=== PATIENT | male | born 1965 | race African-American/Black ===

== ENCOUNTER 2018-07-17 11:57 | Observation (INO) ==
[2018-07-17] MEDS ORDERED: DEXTROSE 50% 25 GM/50 ML SYRINGE IV ONE (12:07)
[2018-07-17] MEDS ORDERED: DEXTROSE 50% 25 GM/50 ML VIAL IV STA (12:11)
[2018-07-17] MEDS ORDERED: SODIUM CHLORIDE 0.9% 1,000 ML IV STA (12:13)
[2018-07-17 12:49] LABS: Basophils % 0.5 % (0.0-0.8); Eosinophils # 0.1 10*3/uL (0.0-0.87); Eosinophils % 1.8 % (0.00-10.9); Hematocrit 36.8 VOL% (42.0-52.0); Hemoglobin 12.8 GM/DL (14.0-18.0); Immature Granulocytes % 0.5 %; Immature Granulocytes Absolute 0.03 #; Lymphocytes # 2.5 10*3/uL (1.4-4.0); Lymphocytes % 45.2 % (21.2-54.2); Mean Corpuscular HGB Conc 34.8 GM/DL (32-36); Mean Corpuscular Hemoglobin 28 PG (27-34); Mean Corpuscular Volume 79.5 FL (87-102); Mean Platelet Volume 10.6 FL (9.6-12.0); Monocytes # 0.6 10*3/uL (0.11-0.8); Neutrophils # 2.3 10*3/uL (1.4-7.4); Platelet Count 300 T/CUMM (130-400); Red Blood Count 4.63 MC/CUMM (3.8-5.5); Red Cell Distribution Width 13.7 % (9.3-17.3); White Blood Count 5.6 T/CUMM (4-12)
[2018-07-17 12:59] LABS: PT Patient Result 10.1 SECS
[2018-07-17 13:06] LABS: Alanine Aminotransferase 28 U/L (16-61); Albumin 3.4 G/DL (3.4-5.0); Alkaline Phosphatase 86 U/L (45-117); Aspartate Amino Transferase 24 U/L (0-37); Blood Urea Nitrogen 13 MG/DL (7-18); Calcium 8.8 MG/DL (8.5-10.1); Glucose 139 MG/DL (74-106); Osmolality,Calculated 278.5 MOS/KG (273-304); Potassium 3.6 MMOL/L (3.5-5.1); Sodium 139 MMOL/L (136-145); Total Protein 6.4 G/DL (6.4-8.3)
[2018-07-17 13:35] LABS: Partial Thromboplastin Time 24.2 SECS (0-40)
[2018-07-17] MEDS ORDERED: LABETALOL 20 MG/4 ML SYRINGE IV STA (13:45)
[2018-07-17] MEDS ORDERED: LABETALOL 200 MG/40 ML VIAL IV STA (13:54)
[2018-07-17] MEDS ORDERED: ACETAMINOPHEN 325 MG TABLET PO PRN (14:39)
[2018-07-17] MEDS ORDERED: GLUCAGON 1 MG VIAL IM PRN (14:39)
[2018-07-17] MEDS ORDERED: ONDANSETRON 4 MG/2 ML VIAL IV PRN (14:39)
[2018-07-17] MEDS ORDERED: DEXTROSE 50% 25 GM/50 ML VIAL IV PRN (14:39)
[2018-07-17 15:05] LABS: Apearance,Urine CLEAR (Clear); Bilirubin,Urine Negative (Negative); Blood, Urine Small mg/dL (Negative); Glucose,Urine (UA) >=500 mg/dL (Negative); Hyaline Casts,Urine 1 /LPF (0-3); Ketones,Urine Negative (Negative); Nitrite,Urine Negative (Negative); Protein,Urine Negative; RBC,Urine 1 /HPF (0-4); Urine Color Yellow (Yellow); Urine Specific Gravity 1.016 (1.001-1.035); Urine Urobilinogen < 2.0 EU/DL (0.2-1.0); WBC,Urine <1 /HPF (0-6)
[2018-07-17 15:10] LABS: Barbiturates Screen,Urine Negative (Negative); Benzodiazepines Screen,Urine Negative (Negative); Cannabinoid Screen,Urine Negative (Negative); Opiate Screen,Urine Negative (Negative); Phencyclidine Screen,Urine Negative (Negative)
[2018-07-17] MEDS ORDERED: hydrALAZINE 20 MG/1 ML VIAL IV PRN (15:16)
[2018-07-17] MEDS: amLODIPine 10 MG TABLET PO SCH (18:25)
[2018-07-17] MEDS: SPIRONOLACTONE 25 MG TABLET PO SCH (18:26)
[2018-07-17] MEDS: ENOXAPARIN 40 MG/0.4 ML SYRINGE SUBCUT SCH ×2 (18:26→18:28)
[2018-07-17] MEDS: INSULIN REGULAR 100 UNIT/ML SUBCUT SCH ×2 (18:26→20:54)
[2018-07-17] MEDS: INSULIN ASPART PROTAMINE/ASPART 70/30 100 UNIT/ML SUBCUT SCH (20:53)
[2018-07-17] MEDS: CARVEDILOL 12.5 MG TABLET PO SCH (20:53)
[2018-07-17] MEDS: GABAPENTIN 100 MG CAPSULE PO SCH (20:53)
[2018-07-17] MEDS ORDERED: AMITRIPTYLINE 100 MG TABLET PO SCH (21:00)
[2018-07-18 05:24] LABS: Calcium 8.5 MG/DL (8.5-10.1); Osmolality,Calculated 279.5 MOS/KG (273-304); Potassium 3.5 MMOL/L (3.5-5.1); Risk Ratio 2.83; VLDL CHOLESTEROL 33.4 MG/DL
[2018-07-18] MEDS ORDERED: PANTOPRAZOLE 40 MG TABLET PO SCH (09:00)
[2018-07-18] MEDS: INSULIN REGULAR 100 UNIT/ML SUBCUT SCH ×2 (09:11→12:12)
[2018-07-18] MEDS: INSULIN ASPART PROTAMINE/ASPART 70/30 100 UNIT/ML SUBCUT SCH (09:12)
[2018-07-18] MEDS: GABAPENTIN 100 MG CAPSULE PO SCH (09:14)
[2018-07-18] MEDS: amLODIPine 10 MG TABLET PO SCH (09:14)
[2018-07-18] MEDS: CARVEDILOL 12.5 MG TABLET PO SCH (09:14)
[2018-07-18] MEDS: SPIRONOLACTONE 25 MG TABLET PO SCH (09:14)
[2018-07-18 11:38] VITALS: BP 124/76
== END 2018-07-18 12:50 | disposition home or self-care (01) ==
LOC: N.ED 11:57 → N.EDINP 11:57 → N.4E 16:03 → N.TELEN 19:37
PROVIDERS: ADMIT Internal Medicine; ATTEND Internal Medicine

== ENCOUNTER 2021-11-01 02:14 | Observation (INO) ==
[2021-11-01 03:55] LABS: Basophils % 0.1 % (0.0-0.8); Eosinophils % 0.1 % (0.00-10.9); Hematocrit 30.8 VOL% (42.0-52.0); Hemoglobin 9.9 GM/DL (14.0-18.0); Immature Granulocytes % 0.3 %; Immature Granulocytes Absolute 0.02 #; Lymphocytes # 0.6 10*3/uL (1.4-4.0); Lymphocytes % 7.9 % (21.2-54.2); Mean Corpuscular HGB Conc 32.1 GM/DL (32-36); Mean Corpuscular Volume 85.6 FL (87-102); Mean Platelet Volume 10.5 FL (9.6-12.0); Neutrophils % 78.6 % (38.7-73.9); Platelet Count 268 T/CUMM (130-400); Red Cell Distribution Width 13.2 % (9.3-17.3); White Blood Count 7.6 T/CUMM (4-12)
[2021-11-01 03:56] LABS: Bilirubin,Urine Negative (Negative); Blood, Urine Negative (Negative); Glucose,Urine (UA) Negative (Negative); Hyaline Casts,Urine 1 /LPF (0-3); Ketones,Urine Negative (Negative); Mucus,Urine Occasional /LPF (Occasional); Nitrite,Urine Negative (Negative); Protein,Urine 100 MG/DL; RBC,Urine 12 /HPF (0-4); Urine Appearance CLEAR (Clear); Urine Color Yellow (Yellow); Urine Specific Gravity 1.016 (1.001-1.035)
[2021-11-01 04:10] LABS: Barbiturates Screen,Urine Negative (Negative); Benzodiazepines Screen,Urine Negative (Negative); Cannabinoid Screen,Urine Negative (Negative); Opiate Screen,Urine Negative (Negative); Phencyclidine Screen,Urine Negative (Negative)
[2021-11-01 05:16] LABS: Albumin 2.4 G/DL (3.4-5.0); Bilirubin,Total 0.4 MG/DL (0.20-1.00); Calcium 7.6 MG/DL (8.5-10.1); Osmolality,Calculated 288.5 MOS/KG (273-304); Potassium 4.2 MMOL/L (3.5-5.1); Total Protein 6.9 G/DL (6.4-8.2)
[2021-11-01] MEDS ORDERED: SODIUM CHLORIDE 0.9% 1,000 ML IV STA (05:37)
[2021-11-01] MEDS ORDERED: DEXTROSE 50% 25 GM/50 ML SYRINGE IV ONE (05:54)
[2021-11-01] MEDS ORDERED: DEXTROSE 50% 25 GM/50 ML VIAL IV STA (06:31)
[2021-11-01] MEDS ORDERED: ACETAMINOPHEN 325 MG TABLET PO PRN (07:42)
[2021-11-01] MEDS ORDERED: ONDANSETRON 4 MG/2 ML VIAL IV PRN (07:42)
[2021-11-01] MEDS ORDERED: GLUCAGON 1 MG VIAL IM PRN (07:42)
[2021-11-01] MEDS ORDERED: MELATONIN 3 MG TABLET PO PRN (07:47)
[2021-11-01] MEDS ORDERED: DEXTROSE 50% 25 GM/50 ML SYRINGE IV PRN (07:50)
[2021-11-01] MEDS ORDERED: SODIUM CHLORIDE 0.9% 1,000 ML IV SCH (08:00)
[2021-11-01] MEDS ORDERED: DEXAMETHASONE 4 MG/1 ML VIAL PO SCH ×2 (09:00→10:45)
[2021-11-01] MEDS ORDERED: guaiFENesin/DM ER 600-30 MG TABLET PO SCH (09:00)
[2021-11-01] MEDS ORDERED: CETIRIZINE 10 MG TABLET PO SCH (09:00)
[2021-11-01] MEDS ORDERED: FAMOTIDINE 20 MG TABLET PO SCH (09:00)
[2021-11-01] MEDS ORDERED: ASCORBIC ACID 500 MG TABLET PO SCH (09:00)
[2021-11-01] MEDS ORDERED: ZINC GLUCONATE 50 MG TABLET PO SCH (09:00)
[2021-11-01] MEDS ORDERED: CHOLECALCIFEROL 1,000 UNIT TABLET PO SCH (09:00)
[2021-11-01] MEDS ORDERED: DEXAMETHASONE 4 MG TABLET ONE (11:31)
[2021-11-01] MEDS: FUROSEMIDE 40 MG/4 ML VIAL IV SCH ×2 (11:35→18:50)
[2021-11-01] MEDS: HEPARIN 5,000 UNIT/1 ML VIAL SUBCUT SCH ×2 (11:37→18:55)
[2021-11-01] MEDS ORDERED: DEXAMETHASONE 4 MG TABLET PO ONE (11:50)
[2021-11-01] MEDS: FAMOTIDINE 20 MG TABLET PO SCH (21:24)
[2021-11-01] MEDS: ASCORBIC ACID 500 MG TABLET PO SCH (21:25)
[2021-11-01] MEDS: guaiFENesin/DM ER 600-30 MG TABLET PO SCH (21:25)
[2021-11-02] MEDS: HEPARIN 5,000 UNIT/1 ML VIAL SUBCUT SCH (03:42)
[2021-11-02 05:03] LABS: Hematocrit 33.9 VOL% (42.0-52.0); Hemoglobin 10.7 GM/DL (14.0-18.0); Immature Granulocytes % 0.6 %; Immature Granulocytes Absolute 0.02 #; Lymphocytes # 0.9 10*3/uL (1.4-4.0); Lymphocytes % 26.3 % (21.2-54.2); Mean Corpuscular HGB Conc 31.6 GM/DL (32-36); Mean Corpuscular Volume 84.5 FL (87-102); Mean Platelet Volume 10.8 FL (9.6-12.0); Monocytes % 17.8 % (1.7-12.7); Neutrophils % 55.3 % (38.7-73.9); Platelet Count 277 T/CUMM (130-400); Red Blood Count 4.01 MC/CUMM (3.8-5.5); Red Cell Distribution Width 13.2 % (9.3-17.3); White Blood Count 3.5 T/CUMM (4-12)
[2021-11-02 05:21] LABS: HIV Antigen/Antibody Result Nonreactive (Nonreactive); Hepatitis B Surface Ab Result Reactive (NonReactive)
[2021-11-02 05:27] LABS: Albumin 2.4 G/DL (3.4-5.0); Bilirubin,Total 0.4 MG/DL (0.20-1.00); Calcium 7.8 MG/DL (8.5-10.1); Osmolality,Calculated 286.7 MOS/KG (273-304); Potassium 4.4 MMOL/L (3.5-5.1); Total Protein 7.3 G/DL (6.4-8.2)
[2021-11-02 06:44] LABS: HIV Antigen/Antibody Result Nonreactive (Nonreactive); Hepatitis B Surface Ag Quant 0.13 Index; Hepatitis B Surface Ag Result Non-Reactive (NonReactive); Hepatitis C Virus Ab Quant < 0.02 Index; Hepatitis C Virus Ab Result Non-Reactive (NonReactive)
[2021-11-02] MEDS ORDERED: INSULIN REGULAR 100 UNIT/ML SUBCUT SCH (07:30)
[2021-11-02] MEDS: FUROSEMIDE 40 MG/4 ML VIAL IV SCH (08:07)
[2021-11-02 08:08] LABS: Hepatitis B Core IgM Quant 0.35 Index; Hepatitis B Surface Ag Quant < 0.10 Index; Hepatitis B Surface Ag Result Non-Reactive (NonReactive); Hepatitis C Virus Ab Quant < 0.02 Index; Hepatitis C Virus Ab Result Non-Reactive (NonReactive)
[2021-11-02] MEDS ORDERED: ZINC GLUCONATE 50 MG TABLET PO SCH (09:00)
[2021-11-02] MEDS ORDERED: CETIRIZINE 10 MG TABLET PO SCH (09:00)
[2021-11-02] MEDS ORDERED: DEXAMETHASONE 4 MG TABLET PO SCH (09:00)
[2021-11-02] MEDS ORDERED: CHOLECALCIFEROL 1,000 UNIT TABLET PO SCH (09:00)
[2021-11-02] MEDS: ASCORBIC ACID 500 MG TABLET PO SCH (09:12)
[2021-11-02] MEDS: FAMOTIDINE 20 MG TABLET PO SCH (09:12)
[2021-11-02] MEDS: guaiFENesin/DM ER 600-30 MG TABLET PO SCH (09:12)
[2021-11-02 13:25] VITALS: BP 143/73
== END 2021-11-02 13:23 ==
LOC: EDUNIT# → EDBD → N.ED 02:14 → N.EDINP 02:14 → SUATTDRO 07:24 → N.EDINP 11-02 13:25
PROVIDERS: ADMIT Internal Medicine Geriatric Medicine; ATTEND Phlebology

== ENCOUNTER 2021-11-04 05:54 | Inpatient (IN) ==
[2021-11-04 06:24] LABS: Basophils % 0.2 % (0.0-0.8); Hematocrit 32.9 VOL% (42.0-52.0); Hemoglobin 10.5 GM/DL (14.0-18.0); Immature Granulocytes % 0.2 %; Immature Granulocytes Absolute 0.01 #; Lymphocytes # 0.9 10*3/uL (1.4-4.0); Lymphocytes % 21.5 % (21.2-54.2); Mean Corpuscular HGB Conc 31.9 GM/DL (32-36); Mean Corpuscular Volume 84.1 FL (87-102); Mean Platelet Volume 10.9 FL (9.6-12.0); Monocytes % 9.2 % (1.7-12.7); Neutrophils % 68.9 % (38.7-73.9); Platelet Count 256 T/CUMM (130-400); Red Blood Count 3.91 MC/CUMM (3.8-5.5); Red Cell Distribution Width 13.2 % (9.3-17.3)
[2021-11-04 06:38] LABS: INR 1.1; PT Patient Result 11.9 SECS (10.5-12.0); Partial Thromboplastin Time 36.1 SECS (23.8-32.1)
[2021-11-04 06:43] LABS: Bilirubin,Urine Negative (Negative); Blood, Urine Negative (Negative); Glucose,Urine (UA) 50 mg/dL (Negative); Hyaline Casts,Urine 4 /LPF (0-3); Ketones,Urine Negative (Negative); Mucus,Urine Occasional /LPF (Occasional); Nitrite,Urine Negative (Negative); Protein,Urine >=500 MG/DL; RBC,Urine 4 /HPF (0-4); Urine Appearance Slightly Hazy (Clear); Urine Color Yellow (Yellow); Urine Specific Gravity 1.016 (1.001-1.035); Urine Urobilinogen < 2.0 EU/DL (<2.0)
[2021-11-04 06:48] LABS: Barbiturates Screen,Urine Negative (Negative); Benzodiazepines Screen,Urine Negative (Negative); Cannabinoid Screen,Urine Negative (Negative); Opiate Screen,Urine Negative (Negative); Phencyclidine Screen,Urine Negative (Negative)
[2021-11-04 06:58] LABS: Albumin 2.2 G/DL (3.4-5.0); Bilirubin,Total 0.5 MG/DL (0.20-1.00); Calcium 7.4 MG/DL (8.5-10.1); Potassium 4.8 MMOL/L (3.5-5.1); Total Protein 7.2 G/DL (6.4-8.2)
[2021-11-04 07:26] LABS: ABG Base Excess -1.5 MMOL/L (-2.5-2.5); ABG Oxygen Saturation 87.7 % (95-100); ABG PCO2 39.4 MM HG (35-48); ABG PH 7.381 (7.35-7.45); ABG PO2 59.5 MM HG (80-95); ABG TCO2 21.2 MMOL/L (23-27)
[2021-11-04] MEDS ORDERED: SODIUM CHLORIDE 0.9% 1,000 ML IV STA (07:26)
[2021-11-04] MEDS ORDERED: LEVOFLOXACIN INJ 750 MG in PREMIX 1 EACH IV STA (07:26)
[2021-11-04] MEDS ORDERED: DEXAMETHASONE 4 MG/1 ML VIAL IV STA (07:31)
[2021-11-04] MEDS ORDERED: ALBUTEROL 2.5 MG/3 ML NEB RESP TX PRN (07:53)
[2021-11-04] MEDS ORDERED: guaiFENesin/DM ER 600-30 MG TABLET PO PRN (07:54)
[2021-11-04] MEDS ORDERED: DEXTROSE 50% 25 GM/50 ML SYRINGE IV PRN (07:54)
[2021-11-04] MEDS ORDERED: ONDANSETRON 4 MG/2 ML VIAL IV PRN (07:54)
[2021-11-04] MEDS ORDERED: GLUCAGON 1 MG VIAL IM PRN (07:54)
[2021-11-04] MEDS ORDERED: MELATONIN 3 MG TABLET PO PRN (07:56)
[2021-11-04 08:34] LABS: Ferritin 1148.1 ng/mL (26-388)
[2021-11-04] MEDS: SODIUM CHLORIDE 0.9% 1,000 ML IV SCH ×2 (08:49→17:22)
[2021-11-04] MEDS: ENOXAPARIN 40 MG/0.4 ML SYRINGE SUBCUT SCH ×2 (08:49→21:38)
[2021-11-04] MEDS: FAMOTIDINE 20 MG/2 ML VIAL IV SCH ×2 (08:49→21:38)
[2021-11-04] MEDS ORDERED: INSULIN GLARGINE 100 UNIT/ML SUBCUT SCH (09:00)
[2021-11-04] MEDS: CHOLECALCIFEROL 1,000 UNIT TABLET PO SCH (09:00)
[2021-11-04] MEDS: ASCORBIC ACID 500 MG TABLET PO SCH ×2 (09:11→22:23)
[2021-11-04] MEDS: ZINC GLUCONATE 50 MG TABLET PO SCH (09:12)
[2021-11-04] MEDS: CETIRIZINE 10 MG TABLET PO SCH (09:12)
[2021-11-04] MEDS: carvediloL 12.5 MG TABLET PO SCH ×2 (10:07→20:54)
[2021-11-04] MEDS: DIVALPROEX 500 MG TABLET PO SCH ×2 (10:07→22:23)
[2021-11-04] MEDS: amLODIPine 5 MG TABLET PO SCH (10:07)
[2021-11-04] MEDS: TAMSULOSIN 0.4 MG CAPSULE PO SCH (10:07)
[2021-11-04] MEDS: INSULIN LISPRO 100 UNIT/ML SUBCUT SCH ×3 (12:16→21:38)
[2021-11-04] MEDS ORDERED: SODIUM CHLORIDE 0.9% 1,000 ML IV ONE (16:56)
[2021-11-04] MEDS ORDERED: INSULIN GLARGINE 100 UNIT/ML SUBCUT ONE (17:03)
[2021-11-04] MEDS: PERPHENAZINE 2 MG TABLET PO SCH (21:10)
[2021-11-04] MEDS: PRAZOSIN 1 MG CAPSULE PO SCH (22:23)
[2021-11-04] MEDS: AMITRIPTYLINE 75 MG TABLET PO SCH (22:23)
[2021-11-04] MEDS: VALPROIC ACID INJ 500 MG in SODIUM CHLORIDE 0.9% 100 ML IV SCH (23:10)
[2021-11-04] MEDS: METOPROLOL TARTRATE 5 MG/5 ML VIAL IV SCH (23:11)
[2021-11-05] MEDS: SODIUM CHLORIDE 0.9% 1,000 ML IV SCH ×3 (03:18→18:50)
[2021-11-05 04:33] LABS: Allen Test Positive; Pt O2 Delivery Device BIPAP
[2021-11-05 04:35] LABS: ABG Base Excess -4.8 MMOL/L (-2.5-2.5); ABG HCO3 20.3 MMOL/L (20-26); ABG PCO2 43.4 MM HG (35-48); ABG PH 7.303 (7.35-7.45); ABG TCO2 19.7 MMOL/L (23-27)
[2021-11-05] MEDS: METOPROLOL TARTRATE 5 MG/5 ML VIAL IV SCH ×3 (05:10→18:05)
[2021-11-05 06:37] LABS: Hematocrit 33.6 VOL% (42.0-52.0); Hemoglobin 10.5 GM/DL (14.0-18.0); Immature Granulocytes % 0.2 %; Immature Granulocytes Absolute 0.01 #; Lymphocytes # 0.9 10*3/uL (1.4-4.0); Lymphocytes % 18.2 % (21.2-54.2); Mean Corpuscular HGB Conc 31.3 GM/DL (32-36); Mean Corpuscular Volume 85.5 FL (87-102); Mean Platelet Volume 11.5 FL (9.6-12.0); Monocytes % 5.1 % (1.7-12.7); Neutrophils % 76.5 % (38.7-73.9); Platelet Count 256 T/CUMM (130-400); Red Blood Count 3.93 MC/CUMM (3.8-5.5); Red Cell Distribution Width 13.6 % (9.3-17.3); White Blood Count 4.7 T/CUMM (4-12)
[2021-11-05 07:00] LABS: Bilirubin,Total 0.4 MG/DL (0.20-1.00); Calcium 7.1 MG/DL (8.5-10.1); Osmolality,Calculated 314.4 MOS/KG (273-304); Total Protein 6.8 G/DL (6.4-8.2)
[2021-11-05 07:04] LABS: Ferritin 1454.6 ng/mL (26-388)
[2021-11-05 07:08] LABS: Lymphocytes 16 % (20-55); Platelet Estimate Normal; Segmented Neutrophils 81 % (50-85); Total Cells Counted 100
[2021-11-05] MEDS: INSULIN LISPRO 100 UNIT/ML SUBCUT SCH ×4 (07:39→21:55)
[2021-11-05] MEDS: ENOXAPARIN 40 MG/0.4 ML SYRINGE SUBCUT SCH ×2 (07:39→21:55)
[2021-11-05] MEDS: CHOLECALCIFEROL 1,000 UNIT TABLET PO SCH (08:47)
[2021-11-05] MEDS: amLODIPine 5 MG TABLET PO SCH (08:47)
[2021-11-05] MEDS: ZINC GLUCONATE 50 MG TABLET PO SCH (08:47)
[2021-11-05] MEDS: ASCORBIC ACID 500 MG TABLET PO SCH ×2 (08:48→21:56)
[2021-11-05] MEDS: DEXAMETHASONE 4 MG/1 ML VIAL IV SCH (08:48)
[2021-11-05] MEDS: TAMSULOSIN 0.4 MG CAPSULE PO SCH (08:48)
[2021-11-05] MEDS: FAMOTIDINE 20 MG/2 ML VIAL IV SCH (08:48)
[2021-11-05] MEDS: INSULIN GLARGINE 100 UNIT/ML SUBCUT SCH (08:49)
[2021-11-05] MEDS: CETIRIZINE 10 MG TABLET PO SCH (08:55)
[2021-11-05] MEDS: VALPROIC ACID INJ 500 MG in SODIUM CHLORIDE 0.9% 100 ML IV SCH ×2 (10:22→21:56)
[2021-11-05] MEDS ORDERED: SODIUM CHLORIDE 0.45% 1,000 ML IV SCH (10:30)
[2021-11-05] MEDS ORDERED: ALBUTEROL INHALER 18 GM INH PRN (12:59)
[2021-11-05] MEDS: LORazepam 2 MG/1 ML VIAL IV PRN (20:36)
[2021-11-05] MEDS: PRAZOSIN 1 MG CAPSULE PO SCH (21:55)
[2021-11-05] MEDS: PERPHENAZINE 2 MG TABLET PO SCH (21:56)
[2021-11-06] MEDS ORDERED: DEXMEDETOMIDINE 200 MCG in SODIUM CHLORIDE 0.9% 48 ML IV PRN (01:11)
[2021-11-06] MEDS ORDERED: OLANZapine 10 MG VIAL IM ONE (01:11)
[2021-11-06] MEDS: METOPROLOL TARTRATE 5 MG/5 ML VIAL IV SCH ×3 (01:25→12:23)
[2021-11-06] MEDS: LORazepam 2 MG/1 ML VIAL IV PRN (01:26)
[2021-11-06] MEDS: SODIUM CHLORIDE 0.9% 1,000 ML IV SCH (01:51)
[2021-11-06 03:18] LABS: ABG Base Excess -2.7 MMOL/L (-2.5-2.5); ABG HCO3 20.4 MMOL/L (20-26); ABG Oxygen Saturation 83.3 % (95-100); ABG PCO2 30.3 MM HG (35-48); ABG PH 7.447 (7.35-7.45); ABG PO2 44.7 MM HG (80-95); ABG TCO2 21.4 MMOL/L (23-27)
[2021-11-06] MEDS ORDERED: ETOMIDATE 20 MG/10 ML VIAL IV ONE ×2 (04:48→05:25)
[2021-11-06] MEDS ORDERED: VECURONIUM 10 MG VIAL IV ONE ×2 (04:48→05:25)
[2021-11-06] MEDS ORDERED: DEXMEDETOMIDINE 400 MCG in SODIUM CHLORIDE 0.9% 96 ML IV PRN (05:00)
[2021-11-06] MEDS ORDERED: FUROSEMIDE 40 MG/4 ML VIAL IV ONE (05:25)
[2021-11-06] MEDS ORDERED: FUROSEMIDE 40 MG/4 ML VIAL ONE (05:25)
[2021-11-06 06:03] LABS: Alanine Aminotransferase < 9 U/L (16-61); Albumin 1.9 G/DL (3.4-5.0); Alkaline Phosphatase 59 U/L (45-117); Aspartate Amino Transferase 38 U/L (0-37); Bilirubin,Total < 0.39 MG/DL (0.20-1.00); Blood Urea Nitrogen 72 MG/DL (7-18); Calcium 7.8 MG/DL (8.5-10.1); Carbon Dioxide 21 MMOL/L (21-32); Estimated Glom Filtration Rate 50 ML/MIN; Glucose 100 MG/DL (74-106); Osmolality,Calculated 306.8 MOS/KG (273-304); Potassium 4.4 MMOL/L (3.5-5.1); Sodium 144 MMOL/L (136-145); Total Protein 6.9 G/DL (6.4-8.2)
[2021-11-06 06:23] LABS: Ferritin 1352.3 ng/mL (26-388)
[2021-11-06 06:28] LABS: ABG HCO3 21.6 MMOL/L (20-26); ABG Oxygen Saturation 79.2 % (95-100); ABG PCO2 36.9 MM HG (35-48); ABG PH 7.378 (7.35-7.45); ABG TCO2 19.5 MMOL/L (23-27)
[2021-11-06] MEDS ORDERED: LEVOFLOXACIN INJ 750 MG/150 ML PREMIX IV SCH (08:00)
[2021-11-06 08:36] LABS: Basophils % 0.1 % (0.0-0.8); Hematocrit 29.7 VOL% (42.0-52.0); Hemoglobin 9.6 GM/DL (14.0-18.0); Immature Granulocytes % 0.6 %; Immature Granulocytes Absolute 0.05 #; Lymphocytes # 0.7 10*3/uL (1.4-4.0); Lymphocytes % 8.7 % (21.2-54.2); Mean Corpuscular HGB Conc 32.3 GM/DL (32-36); Mean Corpuscular Volume 83.4 FL (87-102); Monocytes % 4.8 % (1.7-12.7); Neutrophils % 85.8 % (38.7-73.9); Platelet Count 276 T/CUMM (130-400); Red Blood Count 3.56 MC/CUMM (3.8-5.5); Red Cell Distribution Width 13.9 % (9.3-17.3); White Blood Count 8.4 T/CUMM (4-12)
[2021-11-06] MEDS: FAMOTIDINE 20 MG/2 ML VIAL IV SCH (08:45)
[2021-11-06] MEDS: ASCORBIC ACID 500 MG TABLET PO SCH ×2 (08:47→21:06)
[2021-11-06] MEDS: CETIRIZINE 10 MG TABLET PO SCH (08:47)
[2021-11-06] MEDS: amLODIPine 5 MG TABLET PO SCH (08:47)
[2021-11-06] MEDS: TAMSULOSIN 0.4 MG CAPSULE PO SCH (08:47)
[2021-11-06] MEDS: CHOLECALCIFEROL 1,000 UNIT TABLET PO SCH (08:47)
[2021-11-06] MEDS: ZINC GLUCONATE 50 MG TABLET PO SCH (08:47)
[2021-11-06] MEDS: INSULIN GLARGINE 100 UNIT/ML SUBCUT SCH (08:48)
[2021-11-06] MEDS: DEXAMETHASONE 4 MG/1 ML VIAL IV SCH (08:48)
[2021-11-06] MEDS: ENOXAPARIN 40 MG/0.4 ML SYRINGE SUBCUT SCH ×2 (08:49→20:42)
[2021-11-06] MEDS: buPROPion SR 150 MG TABLET PO SCH (08:53)
[2021-11-06] MEDS: VALPROIC ACID INJ 500 MG in SODIUM CHLORIDE 0.9% 100 ML IV SCH ×2 (10:25→22:16)
[2021-11-06] MEDS ORDERED: GLUCAGON 1 MG VIAL IM PRN (10:39)
[2021-11-06] MEDS ORDERED: DEXTROSE 10% 250 ML BAG IV PRN (10:39)
[2021-11-06 10:56] LABS: ABG Base Excess -3.2 MMOL/L (-2.5-2.5); ABG HCO3 21.7 MMOL/L (20-26); ABG Oxygen Saturation 96.1 % (95-100); ABG PCO2 31.2 MM HG (35-48); ABG PO2 86.1 MM HG (80-95); ABG TCO2 17.6 MMOL/L (23-27); Pt O2 Delivery Device Ventilator
[2021-11-06] MEDS ORDERED: INSULIN LISPRO 100 UNIT/ML SUBCUT SCH (12:00)
[2021-11-06] MEDS: INSULIN REGULAR 100 UNIT/ML SUBCUT SCH ×3 (12:17→23:45)
[2021-11-06] MEDS ORDERED: MIDAZOLAM 100 MG in SODIUM CHLORIDE 0.9% 80 ML IV PRN (13:00)
[2021-11-06] MEDS ORDERED: INSULIN GLARGINE 100 UNIT/ML SUBCUT ONE (17:46)
[2021-11-06] MEDS: PERPHENAZINE 2 MG TABLET PO SCH (20:48)
[2021-11-06] MEDS: AMITRIPTYLINE 75 MG TABLET PO SCH (21:06)
[2021-11-06] MEDS: PRAZOSIN 1 MG CAPSULE PO SCH (21:06)
[2021-11-06] MEDS: carvediloL 12.5 MG TABLET PO SCH (21:07)
[2021-11-07 05:09] LABS: ABG Base Excess -1.1 MMOL/L (-2.5-2.5); ABG HCO3 23.6 MMOL/L (20-26); ABG Oxygen Saturation 99.6 % (95-100); ABG PCO2 27.2 MM HG (35-48); ABG TCO2 19.1 MMOL/L (23-27)
[2021-11-07] MEDS: INSULIN REGULAR 100 UNIT/ML SUBCUT SCH ×5 (05:38→22:31)
[2021-11-07 05:41] LABS: Hemoglobin 9.6 GM/DL (14.0-18.0); Immature Granulocytes % 0.8 %; Immature Granulocytes Absolute 0.04 #; Lymphocytes # 0.5 10*3/uL (1.4-4.0); Lymphocytes % 8.7 % (21.2-54.2); Mean Corpuscular Volume 82.6 FL (87-102); Mean Platelet Volume 11.1 FL (9.6-12.0); Monocytes % 6.8 % (1.7-12.7); Neutrophils % 83.7 % (38.7-73.9); Platelet Count 316 T/CUMM (130-400); Red Blood Count 3.63 MC/CUMM (3.8-5.5); Red Cell Distribution Width 13.9 % (9.3-17.3); White Blood Count 5.2 T/CUMM (4-12)
[2021-11-07 06:50] LABS: Albumin 1.6 G/DL (3.4-5.0); Calcium 7.6 MG/DL (8.5-10.1); Ferritin 1307.6 ng/mL (26-388); Osmolality,Calculated 316.7 MOS/KG (273-304); Potassium 4.3 MMOL/L (3.5-5.1); Total Protein 6.3 G/DL (6.4-8.2)
[2021-11-07] MEDS: DEXAMETHASONE 4 MG/1 ML VIAL IV SCH (08:03)
[2021-11-07] MEDS: carvediloL 12.5 MG TABLET PO SCH ×2 (08:06→20:14)
[2021-11-07] MEDS: ENOXAPARIN 40 MG/0.4 ML SYRINGE SUBCUT SCH ×2 (08:06→20:14)
[2021-11-07] MEDS: TAMSULOSIN 0.4 MG CAPSULE PO SCH (08:07)
[2021-11-07] MEDS: FAMOTIDINE 20 MG/2 ML VIAL IV SCH (08:07)
[2021-11-07] MEDS: ASCORBIC ACID 500 MG TABLET PO SCH ×2 (08:07→20:14)
[2021-11-07] MEDS: CHOLECALCIFEROL 1,000 UNIT TABLET PO SCH (08:07)
[2021-11-07] MEDS: ZINC GLUCONATE 50 MG TABLET PO SCH (08:08)
[2021-11-07] MEDS: buPROPion SR 150 MG TABLET PO SCH (08:08)
[2021-11-07] MEDS: CETIRIZINE 10 MG TABLET PO SCH (08:08)
[2021-11-07] MEDS: INSULIN GLARGINE 100 UNIT/ML SUBCUT SCH (08:10)
[2021-11-07] MEDS: amLODIPine 10 MG TABLET PO SCH (08:11)
[2021-11-07] MEDS: VALPROIC ACID INJ 500 MG in SODIUM CHLORIDE 0.9% 100 ML IV SCH ×2 (10:29→21:19)
[2021-11-07] MEDS: methylPREDNISolone SOD SUC 40 MG/1 ML VIAL IV SCH ×3 (10:41→23:50)
[2021-11-07] MEDS: LEVOFLOXACIN INJ 750 MG/150 ML PREMIX IV SCH (12:09)
[2021-11-07] MEDS ORDERED: METOCLOPRAMIDE 10 MG/2 ML VIAL IV ONE (16:47)
[2021-11-07] MEDS: AMITRIPTYLINE 75 MG TABLET PO SCH (20:14)
[2021-11-07] MEDS: PRAZOSIN 1 MG CAPSULE PO SCH (20:14)
[2021-11-07] MEDS: PERPHENAZINE 2 MG TABLET PO SCH (21:17)
[2021-11-08] MEDS: INSULIN REGULAR 100 UNIT/ML SUBCUT SCH ×6 (02:35→22:33)
[2021-11-08 03:30] LABS: ABG Base Excess -0.6 MMOL/L (-2.5-2.5); ABG HCO3 23.8 MMOL/L (20-26); ABG Oxygen Saturation 96.2 % (95-100); ABG PCO2 34.1 MM HG (35-48); ABG PH 7.438 (7.35-7.45); ABG PO2 84.6 MM HG (80-95); ABG TCO2 20.7 MMOL/L (23-27)
[2021-11-08] MEDS: hydrALAZINE 20 MG/1 ML VIAL IV PRN ×2 (04:41→21:05)
[2021-11-08] MEDS: methylPREDNISolone SOD SUC 40 MG/1 ML VIAL IV SCH ×3 (05:48→18:11)
[2021-11-08 06:50] LABS: Basophils % 0.1 % (0.0-0.8); Hematocrit 31.8 VOL% (42.0-52.0); Immature Granulocytes % 1.1 %; Immature Granulocytes Absolute 0.12 #; Lymphocytes # 0.4 10*3/uL (1.4-4.0); Lymphocytes % 3.7 % (21.2-54.2); Mean Corpuscular HGB Conc 31.4 GM/DL (32-36); Mean Corpuscular Volume 83.9 FL (87-102); Mean Platelet Volume 11.4 FL (9.6-12.0); Monocytes % 5.2 % (1.7-12.7); Neutrophils % 89.9 % (38.7-73.9); Platelet Count 348 T/CUMM (130-400); Red Blood Count 3.79 MC/CUMM (3.8-5.5); Red Cell Distribution Width 14.4 % (9.3-17.3); White Blood Count 11.1 T/CUMM (4-12)
[2021-11-08 07:17] LABS: Anisocytosis 1+; Band Neutrophils 16 % (0-10); Burr Cells Few; Lymphocytes 2 % (20-55); Platelet Estimate Normal; Segmented Neutrophils 75 % (50-85); Total Cells Counted 100
[2021-11-08 07:18] LABS: Macrocytosis Slight
[2021-11-08 07:26] LABS: Albumin 1.5 G/DL (3.4-5.0); Bilirubin,Total 1.5 MG/DL (0.20-1.00); Calcium 8.1 MG/DL (8.5-10.1); Ferritin 981.6 ng/mL (26-388); Potassium 4.3 MMOL/L (3.5-5.1); Total Protein 6.4 G/DL (6.4-8.2)
[2021-11-08] MEDS: FAMOTIDINE 20 MG/2 ML VIAL IV SCH (08:17)
[2021-11-08] MEDS: carvediloL 12.5 MG TABLET PO SCH ×2 (08:19→20:16)
[2021-11-08] MEDS: TAMSULOSIN 0.4 MG CAPSULE PO SCH (08:19)
[2021-11-08] MEDS: amLODIPine 10 MG TABLET PO SCH (08:19)
[2021-11-08] MEDS: ENOXAPARIN 40 MG/0.4 ML SYRINGE SUBCUT SCH ×2 (08:19→20:16)
[2021-11-08] MEDS: INSULIN GLARGINE 100 UNIT/ML SUBCUT SCH (08:19)
[2021-11-08] MEDS: buPROPion SR 150 MG TABLET PO SCH (08:20)
[2021-11-08] MEDS: ZINC GLUCONATE 50 MG TABLET PO SCH (08:20)
[2021-11-08] MEDS: CHOLECALCIFEROL 1,000 UNIT TABLET PO SCH (08:20)
[2021-11-08] MEDS: ASCORBIC ACID 500 MG TABLET PO SCH ×2 (08:20→20:16)
[2021-11-08] MEDS: CETIRIZINE 10 MG TABLET PO SCH (08:20)
[2021-11-08] MEDS: VALPROIC ACID INJ 500 MG in SODIUM CHLORIDE 0.9% 100 ML IV SCH ×2 (09:19→21:07)
[2021-11-08] MEDS: LEVOFLOXACIN INJ 750 MG/150 ML PREMIX IV SCH (11:12)
[2021-11-08] MEDS: CLINDAMYCIN INJ 600 MG/50 ML PREMIX IV SCH ×2 (15:30→22:27)
[2021-11-08] MEDS: POLYETHYLENE GLYCOL POWDER 17 GM PACK PO SCH (16:14)
[2021-11-08] MEDS: AMITRIPTYLINE 75 MG TABLET PO SCH (20:16)
[2021-11-08] MEDS: PRAZOSIN 1 MG CAPSULE PO SCH (20:16)
[2021-11-08] MEDS: PERPHENAZINE 2 MG TABLET PO SCH (22:19)
[2021-11-09] MEDS: methylPREDNISolone SOD SUC 40 MG/1 ML VIAL IV SCH ×5 (00:02→23:45)
[2021-11-09] MEDS: INSULIN REGULAR 100 UNIT/ML SUBCUT SCH ×6 (02:37→20:18)
[2021-11-09 04:04] LABS: ABG Base Excess 0.2 MMOL/L (-2.5-2.5); ABG HCO3 24.5 MMOL/L (20-26); ABG Oxygen Saturation 94.7 % (95-100); ABG PCO2 36.1 MM HG (35-48); ABG PH 7.432 (7.35-7.45); ABG PO2 76.9 MM HG (80-95); ABG TCO2 21.2 MMOL/L (23-27); Allen Test Positive; Pt O2 Delivery Device Ventilator
[2021-11-09 04:49] LABS: Basophils % 0.2 % (0.0-0.8); Hematocrit 32.3 VOL% (42.0-52.0); Hemoglobin 10.2 GM/DL (14.0-18.0); Immature Granulocytes % 1.8 %; Immature Granulocytes Absolute 0.23 #; Lymphocytes # 0.4 10*3/uL (1.4-4.0); Lymphocytes % 3.4 % (21.2-54.2); Mean Corpuscular HGB Conc 31.6 GM/DL (32-36); Mean Corpuscular Volume 85.2 FL (87-102); Mean Platelet Volume 11.2 FL (9.6-12.0); Monocytes % 6.1 % (1.7-12.7); Neutrophils % 88.5 % (38.7-73.9); Platelet Count 397 T/CUMM (130-400); Red Blood Count 3.79 MC/CUMM (3.8-5.5); Red Cell Distribution Width 14.6 % (9.3-17.3); White Blood Count 12.9 T/CUMM (4-12)
[2021-11-09 05:10] LABS: Alanine Aminotransferase 15 U/L (16-61); Albumin 1.5 G/DL (3.4-5.0); Alkaline Phosphatase 67 U/L (45-117); Aspartate Amino Transferase 35 U/L (0-37); Bilirubin,Total < 0.39 MG/DL (0.20-1.00); Blood Urea Nitrogen 52 MG/DL (7-18); Calcium 8.2 MG/DL (8.5-10.1); Carbon Dioxide 23 MMOL/L (21-32); Estimated Glom Filtration Rate 72 ML/MIN; Ferritin 650.7 ng/mL (26-388); Glucose 220 MG/DL (74-106); Osmolality,Calculated 312.4 MOS/KG (273-304); Potassium 4.4 MMOL/L (3.5-5.1); Sodium 147 MMOL/L (136-145); Total Protein 6.4 G/DL (6.4-8.2)
[2021-11-09 05:12] LABS: Hypochromia 1+; Lymphocytes 5 % (20-55); Metamyelocytes 1 %; Segmented Neutrophils 89 % (50-85); Total Cells Counted 100
[2021-11-09 05:13] LABS: Ovalocytes Slight
[2021-11-09 05:14] LABS: Microcytosis 1+; Platelet Estimate Normal
[2021-11-09] MEDS: CLINDAMYCIN INJ 600 MG/50 ML PREMIX IV SCH ×3 (06:03→23:45)
[2021-11-09] MEDS: hydrALAZINE 20 MG/1 ML VIAL IV PRN ×2 (06:03→22:36)
[2021-11-09] MEDS: FAMOTIDINE 20 MG/2 ML VIAL IV SCH (08:25)
[2021-11-09] MEDS: POLYETHYLENE GLYCOL POWDER 17 GM PACK PO SCH (08:28)
[2021-11-09] MEDS: ENOXAPARIN 40 MG/0.4 ML SYRINGE SUBCUT SCH ×2 (08:28→20:11)
[2021-11-09] MEDS: ASCORBIC ACID 500 MG TABLET PO SCH ×2 (08:28→20:10)
[2021-11-09] MEDS: INSULIN GLARGINE 100 UNIT/ML SUBCUT SCH (08:28)
[2021-11-09] MEDS: carvediloL 12.5 MG TABLET PO SCH ×2 (08:28→20:10)
[2021-11-09] MEDS: amLODIPine 10 MG TABLET PO SCH (08:28)
[2021-11-09] MEDS: TAMSULOSIN 0.4 MG CAPSULE PO SCH (08:28)
[2021-11-09] MEDS: buPROPion SR 150 MG TABLET PO SCH (08:29)
[2021-11-09] MEDS: CETIRIZINE 10 MG TABLET PO SCH (08:29)
[2021-11-09] MEDS: ZINC GLUCONATE 50 MG TABLET PO SCH (08:29)
[2021-11-09] MEDS: CHOLECALCIFEROL 1,000 UNIT TABLET PO SCH (08:29)
[2021-11-09] MEDS: VALPROIC ACID INJ 500 MG in SODIUM CHLORIDE 0.9% 100 ML IV SCH ×2 (11:01→22:04)
[2021-11-09] MEDS ORDERED: DEXMEDETOMIDINE 200 MCG in SODIUM CHLORIDE 0.9% 48 ML IV PRN (12:00)
[2021-11-09] MEDS: PRAZOSIN 1 MG CAPSULE PO SCH (20:10)
[2021-11-09] MEDS: AMITRIPTYLINE 75 MG TABLET PO SCH (20:10)
[2021-11-09] MEDS: DEXMEDETOMIDINE 400 MCG in SODIUM CHLORIDE 0.9% 96 ML IV PRN (21:26)
[2021-11-09] MEDS: PERPHENAZINE 2 MG TABLET PO SCH (21:33)
[2021-11-10] MEDS: INSULIN REGULAR 100 UNIT/ML SUBCUT SCH ×7 (00:51→23:49)
[2021-11-10 03:39] LABS: Basophils % 0.2 % (0.0-0.8); Hematocrit 32.2 VOL% (42.0-52.0); Hemoglobin 10.3 GM/DL (14.0-18.0); Immature Granulocytes % 6.2 %; Immature Granulocytes Absolute 0.68 #; Lymphocytes # 0.5 10*3/uL (1.4-4.0); Lymphocytes % 4.3 % (21.2-54.2); Mean Corpuscular Volume 85.6 FL (87-102); Mean Platelet Volume 11.2 FL (9.6-12.0); Monocytes % 8.1 % (1.7-12.7); Neutrophils % 81.2 % (38.7-73.9); Platelet Count 421 T/CUMM (130-400); Red Blood Count 3.76 MC/CUMM (3.8-5.5); Red Cell Distribution Width 14.6 % (9.3-17.3); White Blood Count 11.1 T/CUMM (4-12)
[2021-11-10 04:04] LABS: Alanine Aminotransferase 30 U/L (16-61); Albumin 1.4 G/DL (3.4-5.0); Alkaline Phosphatase 71 U/L (45-117); Aspartate Amino Transferase 36 U/L (0-37); Bilirubin,Total < 0.39 MG/DL (0.20-1.00); Blood Urea Nitrogen 62 MG/DL (7-18); Calcium 7.9 MG/DL (8.5-10.1); Carbon Dioxide 23 MMOL/L (21-32); Estimated Glom Filtration Rate 67 ML/MIN; Ferritin 567.1 ng/mL (26-388); Glucose 295 MG/DL (74-106); Lymphocytes 2 % (20-55); Osmolality,Calculated 320.4 MOS/KG (273-304); Potassium 4.8 MMOL/L (3.5-5.1); Segmented Neutrophils 92 % (50-85); Sodium 147 MMOL/L (136-145); Total Cells Counted 100; Total Protein 6.2 G/DL (6.4-8.2)
[2021-11-10 04:05] LABS: Hypochromia 1+; Microcytosis 1+; Platelet Estimate Adequate
[2021-11-10 04:18] LABS: ABG Base Excess -0.8 MMOL/L (-2.5-2.5); ABG HCO3 23.7 MMOL/L (20-26); ABG Oxygen Saturation 95.9 % (95-100); ABG PCO2 36.9 MM HG (35-48); ABG PH 7.411 (7.35-7.45); ABG PO2 85.5 MM HG (80-95); ABG TCO2 21.1 MMOL/L (23-27)
[2021-11-10] MEDS: methylPREDNISolone SOD SUC 40 MG/1 ML VIAL IV SCH ×4 (04:57→23:22)
[2021-11-10] MEDS: hydrALAZINE 20 MG/1 ML VIAL IV PRN ×3 (06:06→19:34)
[2021-11-10] MEDS: CLINDAMYCIN INJ 600 MG/50 ML PREMIX IV SCH ×3 (06:06→23:22)
[2021-11-10] MEDS: CETIRIZINE 10 MG TABLET PO SCH (09:01)
[2021-11-10] MEDS: ENOXAPARIN 40 MG/0.4 ML SYRINGE SUBCUT SCH ×2 (09:01→20:08)
[2021-11-10] MEDS: ZINC GLUCONATE 50 MG TABLET PO SCH (09:02)
[2021-11-10] MEDS: carvediloL 12.5 MG TABLET PO SCH ×2 (09:02→20:09)
[2021-11-10] MEDS: buPROPion SR 150 MG TABLET PO SCH (09:02)
[2021-11-10] MEDS: CHOLECALCIFEROL 1,000 UNIT TABLET PO SCH (09:02)
[2021-11-10] MEDS: ASCORBIC ACID 500 MG TABLET PO SCH ×2 (09:03→20:08)
[2021-11-10] MEDS: INSULIN GLARGINE 100 UNIT/ML SUBCUT SCH (09:03)
[2021-11-10] MEDS: TAMSULOSIN 0.4 MG CAPSULE PO SCH (09:03)
[2021-11-10] MEDS: POLYETHYLENE GLYCOL POWDER 17 GM PACK PO SCH (09:03)
[2021-11-10] MEDS: amLODIPine 10 MG TABLET PO SCH (09:03)
[2021-11-10] MEDS: FAMOTIDINE 20 MG/2 ML VIAL IV SCH (09:04)
[2021-11-10] MEDS: VALPROIC ACID INJ 500 MG in SODIUM CHLORIDE 0.9% 100 ML IV SCH ×2 (09:25→22:26)
[2021-11-10] MEDS: DEXMEDETOMIDINE 400 MCG in SODIUM CHLORIDE 0.9% 96 ML IV PRN (11:34)
[2021-11-10] MEDS: AMITRIPTYLINE 75 MG TABLET PO SCH (20:08)
[2021-11-10] MEDS: PRAZOSIN 1 MG CAPSULE PO SCH (20:08)
[2021-11-10] MEDS: PERPHENAZINE 2 MG TABLET PO SCH (21:38)
[2021-11-11] MEDS: hydrALAZINE 20 MG/1 ML VIAL IV PRN ×3 (01:36→16:00)
[2021-11-11] MEDS: INSULIN REGULAR 100 UNIT/ML SUBCUT SCH ×5 (03:59→20:05)
[2021-11-11 04:21] LABS: Basophils % 0.2 % (0.0-0.8); Hematocrit 34.4 VOL% (42.0-52.0); Hemoglobin 10.8 GM/DL (14.0-18.0); Immature Granulocytes % 5.5 %; Immature Granulocytes Absolute 0.56 #; Lymphocytes # 0.5 10*3/uL (1.4-4.0); Lymphocytes % 5.1 % (21.2-54.2); Mean Corpuscular HGB Conc 31.4 GM/DL (32-36); Mean Corpuscular Volume 86.2 FL (87-102); Mean Platelet Volume 10.9 FL (9.6-12.0); Monocytes % 8.3 % (1.7-12.7); Neutrophils % 80.9 % (38.7-73.9); Platelet Count 442 T/CUMM (130-400); Red Blood Count 3.99 MC/CUMM (3.8-5.5); Red Cell Distribution Width 14.6 % (9.3-17.3); White Blood Count 10.2 T/CUMM (4-12)
[2021-11-11 04:37] LABS: Calcium 8.2 MG/DL (8.5-10.1); Osmolality,Calculated 324.6 MOS/KG (273-304)
[2021-11-11 04:43] LABS: Hypochromia Slight; Lymphocytes 5 % (20-55); Microcytosis Slight; Platelet Estimate Adequate; Segmented Neutrophils 85 % (50-85); Total Cells Counted 100
[2021-11-11 04:53] LABS: ABG Base Excess -0.8 MMOL/L (-2.5-2.5); ABG HCO3 23.1 MMOL/L (20-26); ABG Oxygen Saturation 92.8 % (95-100); ABG PCO2 35.3 MM HG (35-48); ABG PH 7.434 (7.35-7.45); ABG PO2 67.1 MM HG (80-95); ABG TCO2 24.2 MMOL/L (23-27)
[2021-11-11] MEDS: methylPREDNISolone SOD SUC 40 MG/1 ML VIAL IV SCH ×4 (05:45→22:12)
[2021-11-11] MEDS: CLINDAMYCIN INJ 600 MG/50 ML PREMIX IV SCH ×3 (06:07→22:14)
[2021-11-11] MEDS ORDERED: traZODone 50 MG TABLET PO PRN (08:53)
[2021-11-11] MEDS: CETIRIZINE 10 MG TABLET PO SCH (09:09)
[2021-11-11] MEDS: TAMSULOSIN 0.4 MG CAPSULE PO SCH (09:09)
[2021-11-11] MEDS: carvediloL 12.5 MG TABLET PO SCH ×2 (09:09→20:05)
[2021-11-11] MEDS: POLYETHYLENE GLYCOL POWDER 17 GM PACK PO SCH (09:10)
[2021-11-11] MEDS: CHOLECALCIFEROL 1,000 UNIT TABLET PO SCH (09:10)
[2021-11-11] MEDS: amLODIPine 10 MG TABLET PO SCH (09:10)
[2021-11-11] MEDS: ZINC GLUCONATE 50 MG TABLET PO SCH (09:10)
[2021-11-11] MEDS: ASCORBIC ACID 500 MG TABLET PO SCH ×2 (09:10→20:05)
[2021-11-11] MEDS: buPROPion SR 150 MG TABLET PO SCH (09:10)
[2021-11-11] MEDS: ENOXAPARIN 40 MG/0.4 ML SYRINGE SUBCUT SCH ×2 (09:11→20:05)
[2021-11-11] MEDS: VALPROIC ACID INJ 500 MG in SODIUM CHLORIDE 0.9% 100 ML IV SCH ×2 (09:11→22:12)
[2021-11-11] MEDS: INSULIN GLARGINE 100 UNIT/ML SUBCUT SCH (09:12)
[2021-11-11] MEDS: FAMOTIDINE 20 MG/2 ML VIAL IV SCH (09:13)
[2021-11-11] MEDS: DEXMEDETOMIDINE 400 MCG in SODIUM CHLORIDE 0.9% 96 ML IV PRN ×2 (09:25→16:05)
[2021-11-11] MEDS ORDERED: FUROSEMIDE 40 MG/4 ML VIAL IV ONE (10:00)
[2021-11-11] MEDS: ALBUMIN 25% 12.5 GM/50 ML VIAL IV SCH ×2 (10:13→18:21)
[2021-11-11] MEDS: AMITRIPTYLINE 75 MG TABLET PO SCH (20:05)
[2021-11-11] MEDS: PRAZOSIN 1 MG CAPSULE PO SCH (20:05)
[2021-11-11] MEDS: PERPHENAZINE 2 MG TABLET PO SCH (20:06)
[2021-11-12] MEDS: DEXMEDETOMIDINE 400 MCG in SODIUM CHLORIDE 0.9% 96 ML IV PRN ×3 (00:14→16:45)
[2021-11-12] MEDS: INSULIN REGULAR 100 UNIT/ML SUBCUT SCH ×6 (00:19→20:23)
[2021-11-12] MEDS: ALBUMIN 25% 12.5 GM/50 ML VIAL IV SCH ×2 (00:19→09:13)
[2021-11-12] MEDS: hydrALAZINE 20 MG/1 ML VIAL IV PRN ×2 (00:19→11:00)
[2021-11-12 02:40] LABS: ABG HCO3 25.3 MMOL/L (20-26); ABG Oxygen Saturation 96.5 % (95-100); ABG PCO2 39.3 MM HG (35-48); ABG PH 7.419 (7.35-7.45); ABG PO2 90.3 MM HG (80-95); ABG TCO2 22.9 MMOL/L (23-27)
[2021-11-12 03:55] LABS: Basophils % 0.2 % (0.0-0.8); Hematocrit 32.8 VOL% (42.0-52.0); Hemoglobin 10.4 GM/DL (14.0-18.0); Immature Granulocytes % 5.5 %; Immature Granulocytes Absolute 0.53 #; Lymphocytes # 0.6 10*3/uL (1.4-4.0); Lymphocytes % 6.1 % (21.2-54.2); Mean Corpuscular HGB Conc 31.7 GM/DL (32-36); Mean Corpuscular Volume 87.5 FL (87-102); Mean Platelet Volume 11.3 FL (9.6-12.0); Monocytes % 9.2 % (1.7-12.7); Platelet Count 439 T/CUMM (130-400); Red Blood Count 3.75 MC/CUMM (3.8-5.5); Red Cell Distribution Width 14.5 % (9.3-17.3); White Blood Count 9.6 T/CUMM (4-12)
[2021-11-12 04:09] LABS: Calcium 8.3 MG/DL (8.5-10.1); Osmolality,Calculated 320.4 MOS/KG (273-304); Potassium 5.5 MMOL/L (3.5-5.1)
[2021-11-12 04:23] LABS: Band Neutrophils 1 % (0-10); Hypochromia 1+; Lymphocytes 8 % (20-55); Microcytosis 1+; Platelet Estimate Adequate; Segmented Neutrophils 87 % (50-85); Total Cells Counted 100
[2021-11-12] MEDS ORDERED: SODIUM POLYSTYRENE SULFATE 15 GM/60 ML BOTTLE PO ONE (04:28)
[2021-11-12] MEDS: methylPREDNISolone SOD SUC 40 MG/1 ML VIAL IV SCH ×4 (04:41→16:43)
[2021-11-12] MEDS: CLINDAMYCIN INJ 600 MG/50 ML PREMIX IV SCH ×3 (06:00→22:02)
[2021-11-12] MEDS: ENOXAPARIN 40 MG/0.4 ML SYRINGE SUBCUT SCH ×2 (08:34→20:23)
[2021-11-12] MEDS: POLYETHYLENE GLYCOL POWDER 17 GM PACK PO SCH (08:35)
[2021-11-12] MEDS: ASCORBIC ACID 500 MG TABLET PO SCH ×2 (08:35→20:25)
[2021-11-12] MEDS: buPROPion SR 150 MG TABLET PO SCH (08:35)
[2021-11-12] MEDS: TAMSULOSIN 0.4 MG CAPSULE PO SCH (08:35)
[2021-11-12] MEDS: FAMOTIDINE 20 MG/2 ML VIAL IV SCH (08:35)
[2021-11-12] MEDS: INSULIN GLARGINE 100 UNIT/ML SUBCUT SCH (08:35)
[2021-11-12] MEDS: amLODIPine 10 MG TABLET PO SCH (08:35)
[2021-11-12] MEDS: CHOLECALCIFEROL 1,000 UNIT TABLET PO SCH (08:35)
[2021-11-12] MEDS: carvediloL 12.5 MG TABLET PO SCH ×2 (08:35→20:25)
[2021-11-12] MEDS: ZINC GLUCONATE 50 MG TABLET PO SCH (08:36)
[2021-11-12] MEDS: CETIRIZINE 10 MG TABLET PO SCH (08:36)
[2021-11-12] MEDS: VALPROIC ACID INJ 500 MG in SODIUM CHLORIDE 0.9% 100 ML IV SCH ×2 (09:39→22:01)
[2021-11-12] MEDS: LABETALOL 20 MG/4 ML SYRINGE IV PRN ×2 (09:45→20:24)
[2021-11-12] MEDS: FUROSEMIDE 40 MG/4 ML VIAL IV SCH (10:12)
[2021-11-12] MEDS: PRAZOSIN 1 MG CAPSULE PO SCH (20:25)
[2021-11-12] MEDS: hydrALAZINE 25 MG TABLET PO SCH (20:25)
[2021-11-12] MEDS: AMITRIPTYLINE 75 MG TABLET PO SCH (20:25)
[2021-11-12] MEDS: PERPHENAZINE 2 MG TABLET PO SCH (20:26)
[2021-11-13] MEDS: methylPREDNISolone SOD SUC 40 MG/1 ML VIAL IV SCH ×3 (00:06→17:20)
[2021-11-13] MEDS: INSULIN REGULAR 100 UNIT/ML SUBCUT SCH ×7 (00:06→23:26)
[2021-11-13] MEDS: DEXMEDETOMIDINE 400 MCG in SODIUM CHLORIDE 0.9% 96 ML IV PRN ×3 (00:37→18:17)
[2021-11-13 03:32] LABS: Basophils % 0.3 % (0.0-0.8); Hematocrit 33.9 VOL% (42.0-52.0); Hemoglobin 10.6 GM/DL (14.0-18.0); Immature Granulocytes % 4.6 %; Immature Granulocytes Absolute 0.42 #; Lymphocytes % 10.4 % (21.2-54.2); Mean Corpuscular HGB Conc 31.3 GM/DL (32-36); Mean Corpuscular Volume 85.8 FL (87-102); Mean Platelet Volume 10.9 FL (9.6-12.0); Monocytes % 11.4 % (1.7-12.7); Neutrophils % 73.3 % (38.7-73.9); Platelet Count 429 T/CUMM (130-400); Red Blood Count 3.95 MC/CUMM (3.8-5.5); Red Cell Distribution Width 14.1 % (9.3-17.3); White Blood Count 9.1 T/CUMM (4-12)
[2021-11-13 03:47] LABS: Calcium 8.2 MG/DL (8.5-10.1); Osmolality,Calculated 310.7 MOS/KG (273-304); Potassium 5.3 MMOL/L (3.5-5.1)
[2021-11-13 03:52] LABS: Band Neutrophils 1 % (0-10); Hypochromia Slight; Lymphocytes 8 % (20-55); Platelet Estimate Adequate; Segmented Neutrophils 82 % (50-85); Total Cells Counted 100
[2021-11-13 03:53] LABS: Microcytosis Slight
[2021-11-13] MEDS: hydrALAZINE 20 MG/1 ML VIAL IV PRN (04:26)
[2021-11-13 04:36] LABS: ABG HCO3 27.1 MMOL/L (20-26); ABG Oxygen Saturation 96.6 % (95-100); ABG PCO2 38.4 MM HG (35-48); ABG PH 7.454 (7.35-7.45); ABG PO2 87.6 MM HG (80-95)
[2021-11-13] MEDS: CLINDAMYCIN INJ 600 MG/50 ML PREMIX IV SCH ×3 (06:00→22:34)
[2021-11-13] MEDS: CHOLECALCIFEROL 1,000 UNIT TABLET PO SCH (09:26)
[2021-11-13] MEDS: hydrALAZINE 25 MG TABLET PO SCH ×3 (09:26→20:58)
[2021-11-13] MEDS: TAMSULOSIN 0.4 MG CAPSULE PO SCH (09:27)
[2021-11-13] MEDS: amLODIPine 10 MG TABLET PO SCH (09:27)
[2021-11-13] MEDS: ZINC GLUCONATE 50 MG TABLET PO SCH (09:27)
[2021-11-13] MEDS: carvediloL 12.5 MG TABLET PO SCH ×2 (09:27→20:58)
[2021-11-13] MEDS: ASCORBIC ACID 500 MG TABLET PO SCH ×2 (09:27→20:58)
[2021-11-13] MEDS: CETIRIZINE 10 MG TABLET PO SCH (09:27)
[2021-11-13] MEDS: FUROSEMIDE 40 MG/4 ML VIAL IV SCH (09:28)
[2021-11-13] MEDS: ENOXAPARIN 40 MG/0.4 ML SYRINGE SUBCUT SCH ×2 (09:28→20:58)
[2021-11-13] MEDS: FAMOTIDINE 20 MG/2 ML VIAL IV SCH (09:28)
[2021-11-13] MEDS: POLYETHYLENE GLYCOL POWDER 17 GM PACK PO SCH (09:29)
[2021-11-13] MEDS: VALPROIC ACID INJ 500 MG in SODIUM CHLORIDE 0.9% 100 ML IV SCH ×2 (09:30→21:01)
[2021-11-13] MEDS: buPROPion SR 150 MG TABLET PO SCH (10:08)
[2021-11-13] MEDS: INSULIN GLARGINE 100 UNIT/ML SUBCUT SCH (10:08)
[2021-11-13] MEDS: cloNIDine 0.2 MG/24 HR PATCH TRANSDERM SCH (14:57)
[2021-11-13] MEDS: PERPHENAZINE 2 MG TABLET PO SCH (20:58)
[2021-11-13] MEDS: PRAZOSIN 1 MG CAPSULE PO SCH (20:58)
[2021-11-13] MEDS: AMITRIPTYLINE 75 MG TABLET PO SCH (20:58)
[2021-11-14] MEDS: methylPREDNISolone SOD SUC 40 MG/1 ML VIAL IV SCH ×3 (01:17→18:27)
[2021-11-14] MEDS: DEXMEDETOMIDINE 400 MCG in SODIUM CHLORIDE 0.9% 96 ML IV PRN ×2 (03:49→16:09)
[2021-11-14 04:01] LABS: Hematocrit 34.4 VOL% (42.0-52.0); Hemoglobin 10.8 GM/DL (14.0-18.0); Immature Granulocytes % 2.6 %; Immature Granulocytes Absolute 0.27 #; Mean Corpuscular HGB Conc 31.4 GM/DL (32-36); Mean Corpuscular Volume 85.6 FL (87-102); Mean Platelet Volume 11.1 FL (9.6-12.0); Monocytes % 9.3 % (1.7-12.7); Neutrophils % 78.1 % (38.7-73.9); Platelet Count 393 T/CUMM (130-400); Red Blood Count 4.02 MC/CUMM (3.8-5.5); Red Cell Distribution Width 13.7 % (9.3-17.3); White Blood Count 10.4 T/CUMM (4-12)
[2021-11-14 04:12] LABS: Calcium 8.2 MG/DL (8.5-10.1); Osmolality,Calculated 310.6 MOS/KG (273-304); Potassium 5.1 MMOL/L (3.5-5.1)
[2021-11-14] MEDS: INSULIN REGULAR 100 UNIT/ML SUBCUT SCH ×6 (04:40→23:28)
[2021-11-14 05:02] LABS: ABG HCO3 27.1 MMOL/L (20-26); ABG Oxygen Saturation 97.8 % (95-100); ABG PCO2 35.5 MM HG (35-48); ABG PH 7.478 (7.35-7.45); ABG TCO2 23.6 MMOL/L (23-27)
[2021-11-14] MEDS: CLINDAMYCIN INJ 600 MG/50 ML PREMIX IV SCH ×3 (05:42→22:08)
[2021-11-14] MEDS: buPROPion SR 150 MG TABLET PO SCH (09:01)
[2021-11-14] MEDS: hydrALAZINE 25 MG TABLET PO SCH ×3 (09:02→20:01)
[2021-11-14] MEDS: TAMSULOSIN 0.4 MG CAPSULE PO SCH (09:02)
[2021-11-14] MEDS: CETIRIZINE 10 MG TABLET PO SCH (09:02)
[2021-11-14] MEDS: ASCORBIC ACID 500 MG TABLET PO SCH ×2 (09:02→20:01)
[2021-11-14] MEDS: CHOLECALCIFEROL 1,000 UNIT TABLET PO SCH (09:02)
[2021-11-14] MEDS: amLODIPine 10 MG TABLET PO SCH (09:02)
[2021-11-14] MEDS: carvediloL 12.5 MG TABLET PO SCH ×2 (09:02→20:02)
[2021-11-14] MEDS: FAMOTIDINE 20 MG/2 ML VIAL IV SCH (09:04)
[2021-11-14] MEDS: FUROSEMIDE 40 MG/4 ML VIAL IV SCH (09:04)
[2021-11-14] MEDS: POLYETHYLENE GLYCOL POWDER 17 GM PACK PO SCH (09:04)
[2021-11-14] MEDS: ZINC GLUCONATE 50 MG TABLET PO SCH (09:04)
[2021-11-14] MEDS: ENOXAPARIN 40 MG/0.4 ML SYRINGE SUBCUT SCH ×2 (09:05→20:03)
[2021-11-14] MEDS: INSULIN GLARGINE 100 UNIT/ML SUBCUT SCH (10:39)
[2021-11-14] MEDS: VALPROIC ACID INJ 500 MG in SODIUM CHLORIDE 0.9% 100 ML IV SCH ×2 (11:03→22:08)
[2021-11-14] MEDS: METOCLOPRAMIDE 10 MG/2 ML VIAL IV SCH ×3 (11:30→23:29)
[2021-11-14] MEDS: PRAZOSIN 1 MG CAPSULE PO SCH (20:02)
[2021-11-14] MEDS: AMITRIPTYLINE 75 MG TABLET PO SCH (20:02)
[2021-11-14] MEDS: PERPHENAZINE 2 MG TABLET PO SCH (20:03)
[2021-11-15] MEDS: DEXMEDETOMIDINE 400 MCG in SODIUM CHLORIDE 0.9% 96 ML IV PRN ×3 (00:31→21:12)
[2021-11-15] MEDS: methylPREDNISolone SOD SUC 40 MG/1 ML VIAL IV SCH ×3 (01:13→20:29)
[2021-11-15 03:20] LABS: Basophils % 0.1 % (0.0-0.8); Hematocrit 30.9 VOL% (42.0-52.0); Hemoglobin 9.9 GM/DL (14.0-18.0); Immature Granulocytes % 1.8 %; Immature Granulocytes Absolute 0.21 #; Lymphocytes # 2.2 10*3/uL (1.4-4.0); Lymphocytes % 19.3 % (21.2-54.2); Mean Corpuscular Volume 84.7 FL (87-102); Mean Platelet Volume 11.4 FL (9.6-12.0); Monocytes % 10.5 % (1.7-12.7); Neutrophils % 68.3 % (38.7-73.9); Platelet Count 363 T/CUMM (130-400); Red Blood Count 3.65 MC/CUMM (3.8-5.5); Red Cell Distribution Width 13.4 % (9.3-17.3); White Blood Count 11.5 T/CUMM (4-12)
[2021-11-15 03:41] LABS: Calcium 8.2 MG/DL (8.5-10.1); Osmolality,Calculated 296.3 MOS/KG (273-304); Potassium 4.6 MMOL/L (3.5-5.1)
[2021-11-15 04:22] LABS: ABG Oxygen Saturation 96.3 % (95-100); ABG PCO2 34.5 MM HG (35-48); ABG PH 7.488 (7.35-7.45); ABG PO2 83.8 MM HG (80-95); ABG TCO2 23.6 MMOL/L (23-27)
[2021-11-15] MEDS: INSULIN REGULAR 100 UNIT/ML SUBCUT SCH ×5 (04:40→20:30)
[2021-11-15] MEDS: CLINDAMYCIN INJ 600 MG/50 ML PREMIX IV SCH ×3 (06:00→22:45)
[2021-11-15] MEDS: METOCLOPRAMIDE 10 MG/2 ML VIAL IV SCH ×3 (06:01→17:08)
[2021-11-15] MEDS: CETIRIZINE 10 MG TABLET PO SCH (08:25)
[2021-11-15] MEDS: amLODIPine 10 MG TABLET PO SCH (08:25)
[2021-11-15] MEDS: ASCORBIC ACID 500 MG TABLET PO SCH ×2 (08:25→20:29)
[2021-11-15] MEDS: carvediloL 12.5 MG TABLET PO SCH ×2 (08:26→20:29)
[2021-11-15] MEDS: ZINC GLUCONATE 50 MG TABLET PO SCH (08:26)
[2021-11-15] MEDS: CHOLECALCIFEROL 1,000 UNIT TABLET PO SCH (08:26)
[2021-11-15] MEDS: TAMSULOSIN 0.4 MG CAPSULE PO SCH (08:26)
[2021-11-15] MEDS: hydrALAZINE 25 MG TABLET PO SCH ×3 (08:26→20:29)
[2021-11-15] MEDS: buPROPion SR 150 MG TABLET PO SCH (08:26)
[2021-11-15] MEDS: FUROSEMIDE 40 MG/4 ML VIAL IV SCH (08:27)
[2021-11-15] MEDS: INSULIN GLARGINE 100 UNIT/ML SUBCUT SCH (08:27)
[2021-11-15] MEDS: FAMOTIDINE 20 MG/2 ML VIAL IV SCH (08:27)
[2021-11-15] MEDS: ENOXAPARIN 40 MG/0.4 ML SYRINGE SUBCUT SCH ×2 (08:28→20:29)
[2021-11-15] MEDS: POLYETHYLENE GLYCOL POWDER 17 GM PACK PO SCH (08:28)
[2021-11-15] MEDS: VALPROIC ACID INJ 500 MG in SODIUM CHLORIDE 0.9% 100 ML IV SCH ×2 (09:59→22:44)
[2021-11-15] MEDS: PERPHENAZINE 2 MG TABLET PO SCH (20:30)
[2021-11-15] MEDS: AMITRIPTYLINE 75 MG TABLET PO SCH (20:30)
[2021-11-15] MEDS: PRAZOSIN 1 MG CAPSULE PO SCH (20:30)
[2021-11-16] MEDS: INSULIN REGULAR 100 UNIT/ML SUBCUT SCH ×6 (00:16→20:42)
[2021-11-16] MEDS: METOCLOPRAMIDE 10 MG/2 ML VIAL IV SCH ×3 (00:25→12:07)
[2021-11-16 04:08] LABS: Basophils % 0.1 % (0.0-0.8); Hematocrit 29.5 VOL% (42.0-52.0); Hemoglobin 9.6 GM/DL (14.0-18.0); Immature Granulocytes % 1.9 %; Immature Granulocytes Absolute 0.17 #; Lymphocytes # 1.5 10*3/uL (1.4-4.0); Lymphocytes % 16.9 % (21.2-54.2); Mean Corpuscular HGB Conc 32.5 GM/DL (32-36); Mean Corpuscular Volume 82.6 FL (87-102); Mean Platelet Volume 11.4 FL (9.6-12.0); Neutrophils % 72.1 % (38.7-73.9); Platelet Count 318 T/CUMM (130-400); Red Blood Count 3.57 MC/CUMM (3.8-5.5); White Blood Count 9.1 T/CUMM (4-12)
[2021-11-16 04:26] LABS: ABG Base Excess 2.8 MMOL/L (-2.5-2.5); ABG HCO3 26.9 MMOL/L (20-26); ABG Oxygen Saturation 96.1 % (95-100); ABG PCO2 30.9 MM HG (35-48); ABG PO2 80.7 MM HG (80-95); ABG TCO2 22.8 MMOL/L (23-27)
[2021-11-16 04:31] LABS: Calcium 8.1 MG/DL (8.5-10.1); Osmolality,Calculated 289.4 MOS/KG (273-304); Potassium 4.8 MMOL/L (3.5-5.1)
[2021-11-16] MEDS: DEXMEDETOMIDINE 400 MCG in SODIUM CHLORIDE 0.9% 96 ML IV PRN (05:12)
[2021-11-16] MEDS: hydrALAZINE 25 MG TABLET PO SCH ×3 (08:53→20:12)
[2021-11-16] MEDS: ASPIRIN CHEW 81 MG TABLET PO SCH (08:53)
[2021-11-16] MEDS: ENOXAPARIN 40 MG/0.4 ML SYRINGE SUBCUT SCH ×2 (08:53→20:12)
[2021-11-16] MEDS: carvediloL 12.5 MG TABLET PO SCH ×2 (08:53→21:39)
[2021-11-16] MEDS: TAMSULOSIN 0.4 MG CAPSULE PO SCH (08:53)
[2021-11-16] MEDS: FAMOTIDINE 20 MG/2 ML VIAL IV SCH (08:54)
[2021-11-16] MEDS: FUROSEMIDE 40 MG/4 ML VIAL IV SCH (08:54)
[2021-11-16] MEDS: methylPREDNISolone SOD SUC 40 MG/1 ML VIAL IV SCH ×2 (08:54→20:12)
[2021-11-16] MEDS: POLYETHYLENE GLYCOL POWDER 17 GM PACK PO SCH (08:54)
[2021-11-16] MEDS: INSULIN GLARGINE 100 UNIT/ML SUBCUT SCH (08:54)
[2021-11-16] MEDS: amLODIPine 10 MG TABLET PO SCH (08:54)
[2021-11-16] MEDS: ASCORBIC ACID 500 MG TABLET PO SCH ×2 (08:54→20:12)
[2021-11-16] MEDS: buPROPion SR 150 MG TABLET PO SCH (08:55)
[2021-11-16] MEDS: ZINC GLUCONATE 50 MG TABLET PO SCH (08:55)
[2021-11-16] MEDS: CETIRIZINE 10 MG TABLET PO SCH (08:55)
[2021-11-16] MEDS: CHOLECALCIFEROL 1,000 UNIT TABLET PO SCH (08:55)
[2021-11-16] MEDS: VALPROIC ACID INJ 500 MG in SODIUM CHLORIDE 0.9% 100 ML IV SCH (09:17)
[2021-11-16] MEDS ORDERED: DEXTROSE 50% 25 GM/50 ML VIAL IV PRN (15:49)
[2021-11-16] MEDS: AMITRIPTYLINE 75 MG TABLET PO SCH (20:12)
[2021-11-16] MEDS: PRAZOSIN 1 MG CAPSULE PO SCH (20:12)
[2021-11-16] MEDS: DIVALPROEX 500 MG TABLET PO SCH (21:39)
[2021-11-16] MEDS: PERPHENAZINE 2 MG TABLET PO SCH (22:21)
[2021-11-17 03:36] LABS: Basophils % 0.1 % (0.0-0.8); Eosinophils % 0.1 % (0.00-10.9); Hematocrit 30.6 VOL% (42.0-52.0); Hemoglobin 9.9 GM/DL (14.0-18.0); Immature Granulocytes % 1.5 %; Immature Granulocytes Absolute 0.15 #; Lymphocytes % 20.4 % (21.2-54.2); Mean Corpuscular HGB Conc 32.4 GM/DL (32-36); Mean Corpuscular Volume 82.7 FL (87-102); Mean Platelet Volume 11.8 FL (9.6-12.0); Monocytes % 7.7 % (1.7-12.7); Neutrophils % 70.2 % (38.7-73.9); Platelet Count 334 T/CUMM (130-400); Red Cell Distribution Width 12.9 % (9.3-17.3); White Blood Count 9.8 T/CUMM (4-12)
[2021-11-17 03:55] LABS: Calcium 8.6 MG/DL (8.5-10.1); Osmolality,Calculated 280.8 MOS/KG (273-304); Potassium 4.4 MMOL/L (3.5-5.1)
[2021-11-17 04:20] LABS: Ferritin 437.9 ng/mL (26-388)
[2021-11-17] MEDS: INSULIN REGULAR 100 UNIT/ML SUBCUT SCH ×4 (08:25→21:42)
[2021-11-17] MEDS: POLYETHYLENE GLYCOL POWDER 17 GM PACK PO SCH (09:56)
[2021-11-17] MEDS: carvediloL 12.5 MG TABLET PO SCH (09:56)
[2021-11-17] MEDS: FAMOTIDINE 20 MG TABLET PO SCH (09:56)
[2021-11-17] MEDS: DIVALPROEX 500 MG TABLET PO SCH ×2 (09:56→21:29)
[2021-11-17] MEDS: ASCORBIC ACID 500 MG TABLET PO SCH ×2 (09:56→21:30)
[2021-11-17] MEDS: TAMSULOSIN 0.4 MG CAPSULE PO SCH (09:56)
[2021-11-17] MEDS: ZINC GLUCONATE 50 MG TABLET PO SCH (09:56)
[2021-11-17] MEDS: CETIRIZINE 10 MG TABLET PO SCH (09:56)
[2021-11-17] MEDS: buPROPion SR 150 MG TABLET PO SCH (09:56)
[2021-11-17] MEDS: ASPIRIN CHEW 81 MG TABLET PO SCH (09:56)
[2021-11-17] MEDS: amLODIPine 10 MG TABLET PO SCH (09:56)
[2021-11-17] MEDS: hydrALAZINE 25 MG TABLET PO SCH ×3 (09:56→21:29)
[2021-11-17] MEDS: CHOLECALCIFEROL 1,000 UNIT TABLET PO SCH (09:56)
[2021-11-17] MEDS: ENOXAPARIN 40 MG/0.4 ML SYRINGE SUBCUT SCH ×2 (09:57→21:30)
[2021-11-17] MEDS: FUROSEMIDE 40 MG/4 ML VIAL IV SCH (09:57)
[2021-11-17] MEDS: methylPREDNISolone SOD SUC 40 MG/1 ML VIAL IV SCH ×2 (10:07→21:30)
[2021-11-17] MEDS ORDERED: carvediloL 12.5 MG TABLET PO ONE (10:19)
[2021-11-17] MEDS: ROSUVASTATIN 20 MG TABLET PO SCH (16:55)
[2021-11-17] MEDS: SACUBITRIL/VALSARTAN 49-51 MG TABLET PO SCH (21:28)
[2021-11-17] MEDS: PRAZOSIN 1 MG CAPSULE PO SCH (21:28)
[2021-11-17] MEDS: carvediloL 25 MG TABLET PO SCH (21:29)
[2021-11-17] MEDS: AMITRIPTYLINE 75 MG TABLET PO SCH (21:30)
[2021-11-17] MEDS: PERPHENAZINE 2 MG TABLET PO SCH (21:30)
[2021-11-18 04:37] LABS: Basophils % 0.1 % (0.0-0.8); Hematocrit 32.1 VOL% (42.0-52.0); Hemoglobin 10.2 GM/DL (14.0-18.0); Immature Granulocytes % 1.8 %; Immature Granulocytes Absolute 0.17 #; Lymphocytes # 1.1 10*3/uL (1.4-4.0); Mean Corpuscular HGB Conc 31.8 GM/DL (32-36); Mean Corpuscular Volume 82.7 FL (87-102); Mean Platelet Volume 12.1 FL (9.6-12.0); Monocytes % 4.7 % (1.7-12.7); Neutrophils % 81.4 % (38.7-73.9); Platelet Count 368 T/CUMM (130-400); Red Blood Count 3.88 MC/CUMM (3.8-5.5); Red Cell Distribution Width 12.9 % (9.3-17.3); White Blood Count 9.5 T/CUMM (4-12)
[2021-11-18 04:59] LABS: Calcium 8.4 MG/DL (8.5-10.1); Osmolality,Calculated 291.5 MOS/KG (273-304); Potassium 4.7 MMOL/L (3.5-5.1)
[2021-11-18] MEDS: buPROPion SR 150 MG TABLET PO SCH (09:54)
[2021-11-18] MEDS: SACUBITRIL/VALSARTAN 49-51 MG TABLET PO SCH ×2 (09:55→22:05)
[2021-11-18] MEDS: amLODIPine 10 MG TABLET PO SCH (09:55)
[2021-11-18] MEDS: CHOLECALCIFEROL 1,000 UNIT TABLET PO SCH (09:55)
[2021-11-18] MEDS: CETIRIZINE 10 MG TABLET PO SCH (09:55)
[2021-11-18] MEDS: DIVALPROEX 500 MG TABLET PO SCH ×2 (09:55→22:05)
[2021-11-18] MEDS: hydrALAZINE 25 MG TABLET PO SCH (09:55)
[2021-11-18] MEDS: FAMOTIDINE 20 MG TABLET PO SCH (09:55)
[2021-11-18] MEDS: ASCORBIC ACID 500 MG TABLET PO SCH ×2 (09:55→22:04)
[2021-11-18] MEDS: carvediloL 25 MG TABLET PO SCH ×2 (09:55→22:05)
[2021-11-18] MEDS: TAMSULOSIN 0.4 MG CAPSULE PO SCH (09:55)
[2021-11-18] MEDS: ROSUVASTATIN 20 MG TABLET PO SCH (09:55)
[2021-11-18] MEDS: ASPIRIN CHEW 81 MG TABLET PO SCH (09:55)
[2021-11-18] MEDS: ENOXAPARIN 40 MG/0.4 ML SYRINGE SUBCUT SCH ×2 (09:56→22:01)
[2021-11-18] MEDS: FUROSEMIDE 40 MG/4 ML VIAL IV SCH (09:56)
[2021-11-18] MEDS: methylPREDNISolone SOD SUC 40 MG/1 ML VIAL IV SCH ×2 (09:56→22:01)
[2021-11-18] MEDS: POLYETHYLENE GLYCOL POWDER 17 GM PACK PO SCH (09:56)
[2021-11-18] MEDS: INSULIN REGULAR 100 UNIT/ML SUBCUT SCH ×4 (10:02→22:03)
[2021-11-18] MEDS: ZINC GLUCONATE 50 MG TABLET PO SCH (12:01)
[2021-11-18] MEDS: PERPHENAZINE 2 MG TABLET PO SCH (21:25)
[2021-11-18] MEDS: PRAZOSIN 1 MG CAPSULE PO SCH (22:04)
[2021-11-18] MEDS: AMITRIPTYLINE 75 MG TABLET PO SCH (22:04)
[2021-11-19 06:19] LABS: Basophils % 0.1 % (0.0-0.8); Hematocrit 28.5 VOL% (42.0-52.0); Hemoglobin 9.2 GM/DL (14.0-18.0); Immature Granulocytes % 1.4 %; Immature Granulocytes Absolute 0.14 #; Lymphocytes # 1.5 10*3/uL (1.4-4.0); Lymphocytes % 15.2 % (21.2-54.2); Mean Corpuscular HGB Conc 32.3 GM/DL (32-36); Mean Corpuscular Volume 83.1 FL (87-102); Mean Platelet Volume 11.5 FL (9.6-12.0); Monocytes % 5.8 % (1.7-12.7); Neutrophils % 77.5 % (38.7-73.9); Platelet Count 342 T/CUMM (130-400); Red Blood Count 3.43 MC/CUMM (3.8-5.5); Red Cell Distribution Width 12.6 % (9.3-17.3); White Blood Count 10.2 T/CUMM (4-12)
[2021-11-19 06:34] LABS: Calcium 8.2 MG/DL (8.5-10.1); Osmolality,Calculated 294.3 MOS/KG (273-304); Potassium 4.5 MMOL/L (3.5-5.1)
[2021-11-19] MEDS: SACUBITRIL/VALSARTAN 49-51 MG TABLET PO SCH ×2 (08:51→22:00)
[2021-11-19] MEDS: CHOLECALCIFEROL 1,000 UNIT TABLET PO SCH (08:51)
[2021-11-19] MEDS: ZINC GLUCONATE 50 MG TABLET PO SCH (08:51)
[2021-11-19] MEDS: ROSUVASTATIN 20 MG TABLET PO SCH (08:52)
[2021-11-19] MEDS: ASCORBIC ACID 500 MG TABLET PO SCH ×2 (08:52→21:50)
[2021-11-19] MEDS: FAMOTIDINE 20 MG TABLET PO SCH (08:52)
[2021-11-19] MEDS: buPROPion SR 150 MG TABLET PO SCH (08:52)
[2021-11-19] MEDS: amLODIPine 10 MG TABLET PO SCH (08:52)
[2021-11-19] MEDS: FUROSEMIDE 40 MG TABLET PO SCH (08:52)
[2021-11-19] MEDS: carvediloL 25 MG TABLET PO SCH ×2 (08:53→21:50)
[2021-11-19] MEDS: ASPIRIN CHEW 81 MG TABLET PO SCH (08:53)
[2021-11-19] MEDS: DIVALPROEX 500 MG TABLET PO SCH ×2 (08:53→21:50)
[2021-11-19] MEDS: CETIRIZINE 10 MG TABLET PO SCH (08:53)
[2021-11-19] MEDS: POLYETHYLENE GLYCOL POWDER 17 GM PACK PO SCH (08:54)
[2021-11-19] MEDS: ENOXAPARIN 40 MG/0.4 ML SYRINGE SUBCUT SCH ×2 (08:54→21:49)
[2021-11-19] MEDS: methylPREDNISolone SOD SUC 40 MG/1 ML VIAL IV SCH ×2 (08:54→21:48)
[2021-11-19] MEDS: INSULIN REGULAR 100 UNIT/ML SUBCUT SCH ×4 (08:57→21:49)
[2021-11-19] MEDS: TAMSULOSIN 0.4 MG CAPSULE PO SCH (09:04)
[2021-11-19] MEDS ORDERED: TUBERCULIN SKIN TEST 0.1 ML SYRINGE INTRADERM ONE (16:10)
[2021-11-19] MEDS: PRAZOSIN 1 MG CAPSULE PO SCH (21:50)
[2021-11-19] MEDS: AMITRIPTYLINE 75 MG TABLET PO SCH (21:50)
[2021-11-19] MEDS: PERPHENAZINE 2 MG TABLET PO SCH (22:00)
[2021-11-20 04:41] LABS: Basophils % 0.1 % (0.0-0.8); Hematocrit 30.9 VOL% (42.0-52.0); Hemoglobin 10.2 GM/DL (14.0-18.0); Immature Granulocytes % 1.1 %; Lymphocytes # 0.8 10*3/uL (1.4-4.0); Lymphocytes % 8.3 % (21.2-54.2); Mean Corpuscular Volume 82.6 FL (87-102); Mean Platelet Volume 11.7 FL (9.6-12.0); Monocytes % 2.8 % (1.7-12.7); Neutrophils % 87.7 % (38.7-73.9); Platelet Count 371 T/CUMM (130-400); Red Blood Count 3.74 MC/CUMM (3.8-5.5); Red Cell Distribution Width 12.8 % (9.3-17.3); White Blood Count 9.1 T/CUMM (4-12)
[2021-11-20 04:59] LABS: Osmolality,Calculated 291.5 MOS/KG (273-304); Potassium 4.5 MMOL/L (3.5-5.1)
[2021-11-20] MEDS: CHOLECALCIFEROL 1,000 UNIT TABLET PO SCH (09:29)
[2021-11-20] MEDS: SACUBITRIL/VALSARTAN 49-51 MG TABLET PO SCH ×2 (09:29→20:50)
[2021-11-20] MEDS: buPROPion SR 150 MG TABLET PO SCH (09:29)
[2021-11-20] MEDS: ASPIRIN CHEW 81 MG TABLET PO SCH (09:29)
[2021-11-20] MEDS: DIVALPROEX 500 MG TABLET PO SCH ×2 (09:29→20:50)
[2021-11-20] MEDS: ASCORBIC ACID 500 MG TABLET PO SCH ×2 (09:29→20:49)
[2021-11-20] MEDS: ROSUVASTATIN 20 MG TABLET PO SCH (09:30)
[2021-11-20] MEDS: amLODIPine 10 MG TABLET PO SCH (09:30)
[2021-11-20] MEDS: carvediloL 25 MG TABLET PO SCH ×2 (09:30→20:50)
[2021-11-20] MEDS: ZINC GLUCONATE 50 MG TABLET PO SCH (09:30)
[2021-11-20] MEDS: FUROSEMIDE 40 MG TABLET PO SCH (09:30)
[2021-11-20] MEDS: FAMOTIDINE 20 MG TABLET PO SCH (09:30)
[2021-11-20] MEDS: TAMSULOSIN 0.4 MG CAPSULE PO SCH (09:30)
[2021-11-20] MEDS: INSULIN REGULAR 100 UNIT/ML SUBCUT SCH ×4 (09:31→20:51)
[2021-11-20] MEDS: ENOXAPARIN 40 MG/0.4 ML SYRINGE SUBCUT SCH ×2 (09:31→20:50)
[2021-11-20] MEDS: POLYETHYLENE GLYCOL POWDER 17 GM PACK PO SCH (09:31)
[2021-11-20] MEDS: CETIRIZINE 10 MG TABLET PO SCH (09:31)
[2021-11-20] MEDS: methylPREDNISolone SOD SUC 40 MG/1 ML VIAL IV SCH ×2 (09:32→20:50)
[2021-11-20] MEDS: cloNIDine 0.2 MG/24 HR PATCH TRANSDERM SCH (09:48)
[2021-11-20] MEDS: AMITRIPTYLINE 75 MG TABLET PO SCH (20:50)
[2021-11-20] MEDS: PRAZOSIN 1 MG CAPSULE PO SCH (20:50)
[2021-11-20] MEDS: PERPHENAZINE 2 MG TABLET PO SCH (21:31)
[2021-11-21] MEDS: methylPREDNISolone SOD SUC 40 MG/1 ML VIAL IV SCH (09:39)
[2021-11-21] MEDS: ENOXAPARIN 40 MG/0.4 ML SYRINGE SUBCUT SCH ×2 (09:39→21:13)
[2021-11-21] MEDS: TAMSULOSIN 0.4 MG CAPSULE PO SCH (09:40)
[2021-11-21] MEDS: POLYETHYLENE GLYCOL POWDER 17 GM PACK PO SCH (09:40)
[2021-11-21] MEDS: ASPIRIN CHEW 81 MG TABLET PO SCH (09:40)
[2021-11-21] MEDS: ROSUVASTATIN 20 MG TABLET PO SCH (09:40)
[2021-11-21] MEDS: ZINC GLUCONATE 50 MG TABLET PO SCH (09:40)
[2021-11-21] MEDS: amLODIPine 10 MG TABLET PO SCH (09:40)
[2021-11-21] MEDS: carvediloL 25 MG TABLET PO SCH ×2 (09:40→21:14)
[2021-11-21] MEDS: buPROPion SR 150 MG TABLET PO SCH (09:40)
[2021-11-21] MEDS: FUROSEMIDE 40 MG TABLET PO SCH (09:40)
[2021-11-21] MEDS: CHOLECALCIFEROL 1,000 UNIT TABLET PO SCH (09:40)
[2021-11-21] MEDS: ASCORBIC ACID 500 MG TABLET PO SCH ×2 (09:40→21:13)
[2021-11-21] MEDS: CETIRIZINE 10 MG TABLET PO SCH (09:41)
[2021-11-21] MEDS: FAMOTIDINE 20 MG TABLET PO SCH (09:41)
[2021-11-21] MEDS: INSULIN REGULAR 100 UNIT/ML SUBCUT SCH ×4 (09:41→21:14)
[2021-11-21] MEDS: DIVALPROEX 500 MG TABLET PO SCH ×2 (09:41→21:14)
[2021-11-21] MEDS: SACUBITRIL/VALSARTAN 49-51 MG TABLET PO SCH ×2 (09:41→21:13)
[2021-11-21] MEDS: PRAZOSIN 1 MG CAPSULE PO SCH (21:13)
[2021-11-21] MEDS: AMITRIPTYLINE 75 MG TABLET PO SCH (21:13)
[2021-11-21] MEDS: PERPHENAZINE 2 MG TABLET PO SCH (21:15)
[2021-11-22] MEDS: DIVALPROEX 500 MG TABLET PO SCH ×2 (09:59→21:45)
[2021-11-22] MEDS: ASPIRIN CHEW 81 MG TABLET PO SCH (10:00)
[2021-11-22] MEDS: TAMSULOSIN 0.4 MG CAPSULE PO SCH (10:00)
[2021-11-22] MEDS: ENOXAPARIN 40 MG/0.4 ML SYRINGE SUBCUT SCH ×2 (10:00→21:45)
[2021-11-22] MEDS: POLYETHYLENE GLYCOL POWDER 17 GM PACK PO SCH (10:00)
[2021-11-22] MEDS: CHOLECALCIFEROL 1,000 UNIT TABLET PO SCH (10:00)
[2021-11-22] MEDS: DEXAMETHASONE 4 MG TABLET PO SCH (10:00)
[2021-11-22] MEDS: SACUBITRIL/VALSARTAN 49-51 MG TABLET PO SCH ×2 (10:00→21:45)
[2021-11-22] MEDS: ZINC GLUCONATE 50 MG TABLET PO SCH (10:00)
[2021-11-22] MEDS: buPROPion SR 150 MG TABLET PO SCH (10:00)
[2021-11-22] MEDS: FAMOTIDINE 20 MG TABLET PO SCH (10:01)
[2021-11-22] MEDS: amLODIPine 10 MG TABLET PO SCH (10:01)
[2021-11-22] MEDS: carvediloL 25 MG TABLET PO SCH ×2 (10:01→21:45)
[2021-11-22] MEDS: FUROSEMIDE 40 MG TABLET PO SCH (10:01)
[2021-11-22] MEDS: ASCORBIC ACID 500 MG TABLET PO SCH ×2 (10:01→21:45)
[2021-11-22] MEDS: CETIRIZINE 10 MG TABLET PO SCH (10:01)
[2021-11-22] MEDS: ROSUVASTATIN 20 MG TABLET PO SCH (10:02)
[2021-11-22] MEDS: INSULIN REGULAR 100 UNIT/ML SUBCUT SCH ×4 (11:09→21:46)
[2021-11-22] MEDS: INSULIN LISPRO 100 UNIT/ML SUBCUT SCH ×3 (12:48→21:46)
[2021-11-22] MEDS: AMITRIPTYLINE 75 MG TABLET PO SCH (21:44)
[2021-11-22] MEDS: PRAZOSIN 1 MG CAPSULE PO SCH (21:45)
[2021-11-22] MEDS: PERPHENAZINE 2 MG TABLET PO SCH (21:46)
[2021-11-23] MEDS: INSULIN REGULAR 100 UNIT/ML SUBCUT SCH ×2 (08:34→12:57)
[2021-11-23] MEDS: buPROPion SR 150 MG TABLET PO SCH (09:57)
[2021-11-23] MEDS: carvediloL 25 MG TABLET PO SCH (09:57)
[2021-11-23] MEDS: TAMSULOSIN 0.4 MG CAPSULE PO SCH (09:57)
[2021-11-23] MEDS: amLODIPine 10 MG TABLET PO SCH (09:57)
[2021-11-23] MEDS: ZINC GLUCONATE 50 MG TABLET PO SCH (09:57)
[2021-11-23] MEDS: DIVALPROEX 500 MG TABLET PO SCH (09:57)
[2021-11-23] MEDS: ASCORBIC ACID 500 MG TABLET PO SCH (09:57)
[2021-11-23] MEDS: SACUBITRIL/VALSARTAN 49-51 MG TABLET PO SCH (09:57)
[2021-11-23] MEDS: FAMOTIDINE 20 MG TABLET PO SCH (09:58)
[2021-11-23] MEDS: CHOLECALCIFEROL 1,000 UNIT TABLET PO SCH (09:58)
[2021-11-23] MEDS: DEXAMETHASONE 4 MG TABLET PO SCH (09:58)
[2021-11-23] MEDS: FUROSEMIDE 40 MG TABLET PO SCH (09:58)
[2021-11-23] MEDS: ASPIRIN CHEW 81 MG TABLET PO SCH (09:58)
[2021-11-23] MEDS: ROSUVASTATIN 20 MG TABLET PO SCH (09:59)
[2021-11-23] MEDS: ENOXAPARIN 40 MG/0.4 ML SYRINGE SUBCUT SCH (09:59)
[2021-11-23] MEDS: CETIRIZINE 10 MG TABLET PO SCH (09:59)
[2021-11-23] MEDS: INSULIN LISPRO 100 UNIT/ML SUBCUT SCH ×2 (09:59→12:57)
[2021-11-23] MEDS: POLYETHYLENE GLYCOL POWDER 17 GM PACK PO SCH (09:59)
[2021-11-23] MEDS ORDERED: DESITIN 4OZ/NYSTATIN 15 GRAM MIXTURE PASTE TOP SCH (12:30)
[2021-11-23 12:47] VITALS: BP 115/59
== END 2021-11-23 12:56 | DRG 207 ==
LOC: EDBD → EDUNIT# → N.ED 05:54 → N.EDINP 07:53 → SUATTDRO 07:53 → N.CC 19:00 → N.TELEN 11-17 05:20
PROVIDERS: ADMIT Family Medicine; ATTEND Internal Medicine Geriatric Medicine